=== PATIENT | male | born 2000 | race Caucasian/White ===

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

== ENCOUNTER 2019-06-25 09:12 | Emergency (ER) | payer BC ==
[2019-06-25 09:45] VITALS: BP 107/58; PULSE 70; RESP 17; TEMP 98.7
--- NOTE | 2019-06-25 10:35 | ED ---
URI HPI - General Chief Complaint: Upper Respiratory Infection Stated Complaint: ENT Time Seen by Provider: 06/25/19 10:05 Source: patient Mode of arrival: ambulatory Limitations: no limitations - History of Present Illness Initial Comments: 19-year-old male presenting to the emergency department for evaluation of sore throat x 2 days. Patient states the past 2 days he has had sore throat he states he feels that his tonsils enlarged and there is pain to the anterior neck. Patient states she has reported a fever at home. Patient states he is unsure if there were white spots on his tonsils. Patient denies any difficulty swallowing or breathing. Denies cough. Patient denies headache or neck stiffness. Patient states he has coughed up once some flecks of blood he believes it is coming from his throat. Patient denies shortness of breath, CP. Denies rash or abdominal pain. Remaining ROS (-). Upon arrival patient appears well. Afebrile, no signs of acute distress. - Related Data Previous Rx's Medication Instructions Recorded Amoxicillin 500 mg PO Q12HR 10 Days #20 cap 06/25/19 Dexamethasone [Decadron] 8 mg PO ONCE 1 Days #2 tablet 06/25/19 Allergies Allergy/AdvReac Type Severity Reaction Status Date / Time No Known Allergies Allergy Verified 06/25/19 10:16 Review of Systems ROS Statement: Those systems with pertinent positive or pertinent negative responses have been documented in the HPI. ROS Other: All systems not noted in ROS Statement are negative. Past Medical History Past Medical History: No Reported History History of Any Multi-Drug Resistant Organisms: None Reported Past Surgical History: No Surgical Hx Reported Past Psychological History: Depression Smoking Status: Former smoker Past Alcohol Use History: None Reported Past Drug Use History: Marijuana General Exam - General Exam Comments Initial Comments: General: The patient is awake and alert, in no distress, and does not appear acutely ill. Eye: +3 mm pupils are equal, round and reactive to light, extra-ocular movements are intact. No nystagmus. There is normal conjunctiva bilaterally. No signs of icterus. Ears, nose, mouth and throat: There are moist mucous membranes and no oral lesions. Uvula midline. Tonsillar enlargement or exudates. Oropharynx erythematous. No tripoding drilling or muffled voice. Neck: The neck is supple, there is no tenderness or JVD. No neck stiffness. Cardiovascular: There is a regular rate and rhythm. No murmur, rub or gallop is appreciated. Respiratory: Lungs are clear to auscultation, respirations are non-labored, breath sounds are equal. No wheezes, stridor, rales, or rhonchi. Gastrointestinal: Soft, non-distended, non-tender abdomen without masses or organomegaly noted. There is no rebound or guarding present. Musculoskeletal: Normal ROM, no tenderness. Strength 5/5. Sensation intact. Radial pulses equal bilaterally 2+. Neurological: A&O x 3. CN II-XII intact grossly, There are no obvious motor or sensory deficits. Coordination appears grossly intact. Speech is normal. Skin: Skin is warm and dry and no rashes or lesions are noted. Psychiatric: Cooperative, appropriate mood & affect, normal judgment. Limitations: no limitations Course Vital Signs 06/25/19 09:42 Temperature 98.7 F Pulse Rate 70 Respiratory 17 Rate Blood Pressure 107/58 O2 Sat by Pulse 100 Oximetry Medical Decision Making - Medical Decision Making 19-year-old male presented to the ER for sore throat 2 days. Patient states he has history of fever. Patient has enlarged tonsils with tonsillar exudates. Uvula is midline. No evidence of tripoding drooling, muffled voice. Patient does not appear toxic. Given clinical physical examination findings and history I feel this patient most likely strep pharyngitis. We'll treat with amoxicillin. Patient was also given Decadron for symptom Relief. If patient develops rash he is to return to the ER. She is to follow-up with primary care provider. Patient is agreeable to this care plan discharge. Patient was provided a work note. Disposition Clinical Impression: Pharyngitis Disposition: HOME SELF-CARE Condition: Good Instructions (If sedation given, give patient instructions): Strep Throat (ED) Additional Instructions: Please use medication as discussed. Please follow-up with family doctor in the next 2 days. If you develop a rash please present to the ER, discontinue the antibiotic prescribed. Please return to emergency room if the symptoms increase or worsen or for any other concerns. Prescriptions: Amoxicillin 500 mg PO Q12HR 10 Days #20 cap Dexamethasone [Decadron] 8 mg PO ONCE 1 Days #2 tablet Is patient prescribed a controlled substance at d/c from ED?: No Referrals: None,Stated [Primary Care Provider] - 1-2 days Time of Disposition: 10:33
== END 2019-06-25 11:56 | disposition home or self-care (01) ==
LOC: EC 09:12
DX: J02.9 Acute pharyngitis, unspecified (principal); Z87.891 Personal history of nicotine dependence
CPT/HCPCS: 99282

== ENCOUNTER 2019-08-03 08:27 | Emergency (ER) | payer BC ==
[2019-08-03 08:31] VITALS: BP 132/85; TEMP 98.2
[2019-08-03] MEDS ORDERED: AZITHROMYCIN 250 MG TAB PO STA (08:51)
[2019-08-03] MEDS ORDERED: cefTRIAXone 250 MG VIAL IM STA (08:51)
[2019-08-03] MEDS ORDERED: valACYclovir 500 MG TAB PO STA (08:52)
[2019-08-03] MEDS ORDERED: valACYclovir HCL 1,000 MG TABLET PO STA (08:53)
[2019-08-03 08:54] VITALS: PULSE 77; RESP 19
--- NOTE | 2019-08-03 09:04 | ED ---
General Adult HPI - General Chief complaint: Recheck/Abnormal Lab/Rx Stated complaint: STD check Time Seen by Provider: 08/03/19 08:33 Source: patient, RN notes reviewed Mode of arrival: ambulatory Limitations: no limitations - History of Present Illness Initial comments: 19-year-old male presents emergency Department chief complaint of penile rash, dysuria. Patient states her last couple days. Patient has a history of Chlamydia when he was 15. Patient states it feels similar. He also states he has some painful blisters on his penile shaft. He states never anything like this in the past. He states he is monogamous relationship though he does have unprotected sex. Patient denies any other complaints. - Related Data Home Medications Medication Instructions Recorded Confirmed No Known Home Medications 08/03/19 08/03/19 Allergies Allergy/AdvReac Type Severity Reaction Status Date / Time No Known Allergies Allergy Verified 08/03/19 09:14 Review of Systems ROS Statement: Those systems with pertinent positive or pertinent negative responses have been documented in the HPI. ROS Other: All systems not noted in ROS Statement are negative. Past Medical History Past Medical History: No Reported History History of Any Multi-Drug Resistant Organisms: None Reported Past Surgical History: No Surgical Hx Reported Past Psychological History: Depression Smoking Status: Former smoker Past Alcohol Use History: None Reported Past Drug Use History: Marijuana General Exam Limitations: no limitations General appearance: alert, in no apparent distress Head exam: Present: atraumatic, normocephalic, normal inspection Respiratory exam: Present: normal lung sounds bilaterally. Absent: respiratory distress, wheezes, rales, rhonchi, stridor Cardiovascular Exam: Present: regular rate, normal rhythm, normal heart sounds. Absent: systolic murmur, diastolic murmur, rubs, gallop, clicks GI/Abdominal exam: Present: soft, normal bowel sounds. Absent: distended, tenderness, guarding, rebound, rigid exam: Present: urethral discharge. Absent: normal inspection (Penile shaft vesicles, blistering noted), scrotal swelling Course Vital Signs 08/03/19 08:27 Temperature 98.2 F Pulse Rate 77 Respiratory 19 Rate Blood Pressure 132/85 O2 Sat by Pulse 100 Oximetry Medical Decision Making - Medical Decision Making 19-year-old male presented for penile rash. Patient has evidence of primary herpes outbreak, he does have some penile discharge coronary chlamydia testing was ordered, patient be treated for suspected gonorrhea or chlamydia at this time. Patient also be treated for herpes outbreak. - Lab Data Lab Results 08/03/19 Range/Units 08:56 Urine Color Yellow Urine Appearance Clear (Clear) Urine pH 5.5 (5.0-8.0) Ur Specific [place] 1.018 (1.001-1.035) Urine Protein Negative (Negative) Urine Glucose (UA) Negative (Negative) Urine Ketones Negative (Negative) Urine Blood Trace H (Negative) Urine Nitrite Negative (Negative) Urine Bilirubin Negative (Negative) Urine Urobilinogen <2.0 (<2.0) mg/dL Ur Leukocyte Esterase Negative (Negative) Urine RBC 6 H (0-5) /hpf Urine WBC 1 (0-5) /hpf Ur Squamous Epith Cells <1 (0-4) /hpf Urine Bacteria Rare H (None) /hpf Urine Mucus Rare H (None) /hpf Disposition Clinical Impression: Herpes, Dysuria, Penile discharge, Screening examination for STD (sexually transmitted disease) Disposition: HOME SELF-CARE Condition: Stable Instructions (If sedation given, give patient instructions): Genital Herpes Simplex (ED) Additional Instructions: Please return to the Emergency Department if symptoms worsen or any other concerns. Is patient prescribed a controlled substance at d/c from ED?: No Referrals: None,Stated [Primary Care Provider] - 1-2 days Time of Disposition: 09:04
[2019-08-03 09:29] LABS: Appearance,Urine Clear (Clear); Bacteria,Urine Rare /hpf; Bilirubin,Urine Negative (Negative); Blood,Urine Trace (Negative); Color,Urine Yellow; Glucose,Urine (UA) Negative (Negative); Ketones,Urine Negative (Negative); Leukocyte Esterase,Urine Negative (Negative); Mucus,Urine Rare /hpf; Nitrite,Urine Negative (Negative); PH, Urine 5.5 (5.0-8.0); Protein,Urine Negative (Negative); RBC,Urine 6 /hpf (0-5); Specific Gravity,Urine 1.018 (1.001-1.035); Squamous Epithelial Cell,Urine <1 /hpf (0-4); Urobilinogen,Urine <2.0 mg/dL (<2.0)
[2019-08-04 14:46] LABS: C. trachomatis,PCR Negative (Neg,Equiv); Chlamydia trachomatis Source Urine
[2019-08-04 14:52] LABS: N. gonorrhoeae,PCR Negative (Neg,Equiv); Neisseria Source Urine
== END 2019-08-03 10:16 | disposition home or self-care (01) ==
LOC: EC 08:27
DX: Z11.3 Encounter for screening for infections with a predominantly sexual mode of transmission (principal); A60.01 Herpesviral infection of penis; R30.0 Dysuria; R36.9 Urethral discharge, unspecified; Z87.891 Personal history of nicotine dependence
CPT/HCPCS: 81001; 87491; 87591; 99283; 96372; J0696

== ENCOUNTER 2020-03-10 02:05 | Emergency (ER) | payer OTHER ==
[2020-03-10 05:35] LABS: Basophils % (A) 0 %; Eosinophils % (A) 0 %; HCT 33.7 % (39.0-53.0); Lymphocytes # (A) 1.3 k/uL (1.0-4.8); Lymphocytes % (A) 11 %; MCV 87.6 fL (80.0-100.0); Mean Platelet Volume 7.7; Monocytes # (A) 0.6 k/uL (0-1.0); Monocytes % (A) 5 %; Neutrophils # (A) 9.8 k/uL (1.3-7.7); Neutrophils % (A) 83 %; Platelet Count 197 k/uL (150-450); RBC 3.84 m/uL (4.30-5.90); RDW 13.5 % (11.5-15.5); WBC 11.8 k/uL (4.0-11.0)
[2020-03-10 05:41] LABS: MCH 29.7 pg (25.0-35.0); MCHC 34.1 g/dL (31.0-37.0)
[2020-03-10 05:43] LABS: HGB 11.5 gm/dL (13.0-17.5)
[2020-03-10 05:57] LABS: Appearance,Urine Clear (Clear); Bilirubin,Urine Negative (Negative); Blood,Urine Negative (Negative); Color,Urine Light Yellow; Glucose,Urine (UA) Negative (Negative); Ketones,Urine Negative (Negative); Leukocyte Esterase,Urine Negative (Negative); Nitrite,Urine Negative (Negative); PH, Urine 5.5 (5.0-8.0); Protein,Urine Negative (Negative); RBC,Urine <1 /hpf (0-5); Specific Gravity,Urine 1.009 (1.001-1.035); Urobilinogen,Urine <2.0 mg/dL (<2.0); WBC,Urine <1 /hpf (0-5)
[2020-03-10 06:02] LABS: Amphetamine Screen,Urine Not Detected (NotDetected); Barbiturate Screen,Urine Not Detected (NotDetected); Benzodiazepines Screen,Urine Not Detected (NotDetected); Cocaine Screen,Urine Not Detected (NotDetected); Methadone Screen, Urine Not Detected (NotDetected); Opiate Screen,Urine Not Detected (NotDetected); Oxycodone Screen, Urine Not Detected (NotDetected); Phencyclidine Screen,Urine Not Detected (NotDetected); Tricyclic Antidepressant,Urine Not Detected (NotDetected); Urn Cannabinoid Scrn Detected (NotDetected)
[2020-03-10 06:02] LABS: ALT 25 U/L (4-49); AST 32 U/L (17-59); Acetaminophen <10.0 ug/mL; African American GFR (CKD) >90 (>60 ml/min/1.73 sqM); Albumin 4.8 g/dL (3.5-5.0); Alkaline Phosphatase 60 U/L (38-126); Anion Gap 10 mmol/L; Blood Urea Nitrogen 16 mg/dL (9-20); Calcium 10.1 mg/dL (8.4-10.2); Carbon Dioxide 26 mmol/L (22-30); Chloride 103 mmol/L (98-107); Glucose 106 mg/dL (74-99); Non-African American GFR(CKD) >90 (>60 ml/min/1.73 sqM); Potassium 5.1 mmol/L (3.5-5.1); Salicylate <1.0 mg/dL; Sodium 139 mmol/L (137-145); Total Bilirubin 0.3 mg/dL (0.2-1.3); Total Protein 7.9 g/dL (6.3-8.2); Valproic Acid (Depakene) 16.1 ug/mL
--- NOTE | 2020-03-10 10:34 | ED ---
General Adult HPI - General Chief complaint: Psychiatric Symptoms Stated complaint: Mental Health Time Seen by Provider: 03/10/20 10:27 - Related Data Home Medications Medication Instructions Recorded Confirmed Divalproex ER [Depakote ER] 1,000 mg PO HS 03/10/20 03/10/20 OLANZapine 15 mg PO HS 03/10/20 03/10/20 diphenhydrAMINE [Benadryl] 25 mg PO QID PRN 03/10/20 03/10/20 Allergies Allergy/AdvReac Type Severity Reaction Status Date / Time No Known Allergies Allergy Verified 03/10/20 09:24 Review of Systems ROS Statement: Those systems with pertinent positive or pertinent negative responses have been documented in the HPI. ROS Other: All systems not noted in ROS Statement are negative. Past Medical History Past Medical History: No Reported History History of Any Multi-Drug Resistant Organisms: None Reported Past Surgical History: No Surgical Hx Reported Past Psychological History: Depression Smoking Status: Former smoker Past Alcohol Use History: None Reported Past Drug Use History: Marijuana Medical Decision Making - Medical Decision Making Please see paper documentation, this patient was initially seen on downtime. 19-year-old presenting with acute psychosis, manic. Patient medically cleared by previous physician and was awaiting placement for further psychiatric evaluation and treatment. Patient will be transferred to [place]. - Lab Data Result diagrams: 03/10/20 03:22 03/10/20 03:22 Lab Results 03/10/20 03/10/20 03/10/20 Range/Units 02:47 03:22 03:22 WBC 11.8 H (4.0-11.0) k/uL RBC 3.84 L (4.30-5.90) m/uL Hgb 11.5 L (13.0-17.5) gm/dL Hct 33.7 L (39.0-53.0) % MCV 87.6 (80.0-100.0) fL MCH 29.7 (25.0-35.0) pg MCHC 34.1 (31.0-37.0) g/dL RDW 13.5 (11.5-15.5) % Plt Count 197 (150-450) k/uL Neutrophils % 83 % Lymphocytes % 11 % Monocytes % 5 % Eosinophils % 0 % Basophils % 0 % Neutrophils # 9.8 H (1.3-7.7) k/uL Lymphocytes # 1.3 (1.0-4.8) k/uL Monocytes # 0.6 (0-1.0) k/uL Eosinophils # 0.0 (0-0.7) k/uL Basophils # 0.0 (0-0.2) k/uL Sodium 139 (137-145) mmol/L Potassium 5.1 (3.5-5.1) mmol/L Chloride 103 (98-107) mmol/L Carbon Dioxide 26 (22-30) mmol/L Anion Gap 10 mmol/L BUN 16 (9-20) mg/dL Creatinine 0.79 (0.66-1.25) mg/dL Est GFR (CKD-EPI)AfAm >90 (>60 ml/min/1.73 sqM) Est GFR (CKD-EPI)NonAf >90 (>60 ml/min/1.73 sqM) Glucose 106 H (74-99) mg/dL Calcium 10.1 (8.4-10.2) mg/dL Total Bilirubin 0.3 (0.2-1.3) mg/dL AST 32 (17-59) U/L ALT 25 (4-49) U/L Alkaline Phosphatase 60 (38-126) U/L Total Protein 7.9 (6.3-8.2) g/dL Albumin 4.8 (3.5-5.0) g/dL Urine Color Light Yellow Urine Appearance Clear (Clear) Urine pH 5.5 (5.0-8.0) Ur Specific [place] 1.009 (1.001-1.035) Urine Protein Negative (Negative) Urine Glucose (UA) Negative (Negative) Urine Ketones Negative (Negative) Urine Blood Negative (Negative) Urine Nitrite Negative (Negative) Urine Bilirubin Negative (Negative) Urine Urobilinogen <2.0 (<2.0) mg/dL Ur Leukocyte Esterase Negative (Negative) Urine RBC <1 (0-5) /hpf Urine WBC <1 (0-5) /hpf Salicylates <1.0 mg/dL Urine Opiates Screen Not Detected (NotDetected) Ur Oxycodone Screen Not Detected (NotDetected) Urine Methadone Screen Not Detected (NotDetected) Ur Propoxyphene Screen Not Detected (NotDetected) Acetaminophen <10.0 ug/mL Ur Barbiturates Screen Not Detected (NotDetected) Valproic Acid 16.1 ug/mL U Tricyclic Antidepress Not Detected (NotDetected) Ur Phencyclidine Scrn Not Detected (NotDetected) Ur Amphetamines Screen Not Detected (NotDetected) U Methamphetamines Scrn Not Detected (NotDetected) U Benzodiazepines Scrn Not Detected (NotDetected) Urine Cocaine Screen Not Detected (NotDetected) U Marijuana (THC) Screen Detected H (NotDetected) Disposition Clinical Impression: Acute psychosis Disposition: OTHER INSTITUTION NOT DEFINED Condition: Stable Is patient prescribed a controlled substance at d/c from ED?: No Referrals: None,Stated [Primary Care Provider] - 1-2 days Time of Disposition: 10:33 - Out of Hospital Transfer - Req. Specs Out of Hospital Transfer - Requested Specifics: Psychiatric Non-ICU ([place])
== END 2020-03-10 12:01 | disposition other institution (70) ==
LOC: EC 02:05
DX: F23 Brief psychotic disorder (principal); F32.9 Major depressive disorder, single episode, unspecified; Z87.891 Personal history of nicotine dependence; Z79.899 Other long term (current) drug therapy
CPT/HCPCS: 99285; 36415; 80164; 80053; 85025; 81003; 80306; 83520; G0480; 80329

== ENCOUNTER 2021-05-03 15:19 | Emergency (ER) | payer OTHER ==
--- NOTE | 2021-05-03 16:29 | ED ---
General Adult HPI - General Chief complaint: Abdominal Pain Stated complaint: Hernia Source: patient Mode of arrival: ambulatory Limitations: no limitations - History of Present Illness Initial comments: 21-year-old male alert and oriented 4 presents to the emergency room with exposure to chlamydia. He is states he has no discharge at this time no abdominal pain. He stated in triage that he had possible hernia but he denies, states he just did not want to stay out loud when he was here for. Patient states that his girlfriend asked him saying she was positive for Chlamydia and that he needed to be treated. - Related Data Home Medications Medication Instructions Recorded Confirmed Divalproex ER [Depakote ER] 1,000 mg PO HS 03/10/20 03/10/20 OLANZapine 15 mg PO HS 03/10/20 03/10/20 diphenhydrAMINE [Benadryl] 25 mg PO QID PRN 03/10/20 03/10/20 Allergies Allergy/AdvReac Type Severity Reaction Status Date / Time No Known Allergies Allergy Verified 05/03/21 16:06 Review of Systems ROS Statement: Those systems with pertinent positive or pertinent negative responses have been documented in the HPI. ROS Other: All systems not noted in ROS Statement are negative. Past Medical History Past Medical History: No Reported History History of Any Multi-Drug Resistant Organisms: None Reported Past Surgical History: No Surgical Hx Reported Past Psychological History: Depression Smoking Status: Current some day smoker Past Alcohol Use History: Occasional Past Drug Use History: Marijuana General Exam Limitations: no limitations General appearance: alert, in no apparent distress Head exam: Present: atraumatic, normocephalic, normal inspection Eye exam: Present: normal appearance, PERRL, EOMI. Absent: scleral icterus, conjunctival injection, periorbital swelling ENT exam: Present: normal exam, normal oropharynx, mucous membranes moist Neck exam: Present: normal inspection, full ROM. Absent: tenderness, meningismus, lymphadenopathy, thyromegaly Respiratory exam: Present: normal lung sounds bilaterally. Absent: respiratory distress, wheezes, rales, rhonchi, stridor Cardiovascular Exam: Present: regular rate, normal rhythm, normal heart sounds. Absent: systolic murmur, diastolic murmur, rubs, gallop, clicks GI/Abdominal exam: Present: soft, normal bowel sounds. Absent: distended, tenderness, guarding, rebound, rigid Extremities exam: Present: normal inspection, full ROM, normal capillary refill. Absent: tenderness, pedal edema, joint swelling, calf tenderness Back exam: Present: normal inspection, full ROM. Absent: tenderness, CVA tenderness (R), CVA tenderness (L), muscle spasm, paraspinal tenderness, vertebral tenderness Neurological exam: Present: alert, oriented X3, CN II-XII intact Psychiatric exam: Present: normal affect, normal mood Skin exam: Present: warm, dry, intact, normal color. Absent: rash, cyanosis, diaphoretic, erythema, petechiae, pallor, mottled Course Vital Signs 05/03/21 16:06 Temperature 98.3 F Pulse Rate 82 Respiratory 20 Rate Blood Pressure 100/61 O2 Sat by Pulse 98 Oximetry Medical Decision Making - Medical Decision Making The patient states that he is here for treatment for an exposure to chlamydia from a sexual partner. He denies any penile discharge or testicular pain. No burning with urination. UA was sent for cultures. He was treated with Rocephin and Zithromax. Patient was directed to abstain from sex for 2 weeks and to wear condoms to prevent infection. Patient stated his initial complaint of hernia was only because he did not want to tell the triage nurse what his real complaint was. He denies any abdominal pain or hernia complaints. He still discussed with Dr. Todd Disposition Clinical Impression: Sexually transmitted disease (STD) Disposition: HOME SELF-CARE Condition: Good Additional Instructions: Wear condoms and practice safe sex. No sexual intercourse for 2 weeks. Have all your partners treated. Is patient prescribed a controlled substance at d/c from ED?: No Referrals: None,Stated [Primary Care Provider] - 1-2 days Time of Disposition: 16:38
[2021-05-03] MEDS ORDERED: AZITHROMYCIN 250 MG TAB PO STA (16:31)
[2021-05-03] MEDS ORDERED: cefTRIAXone 250 MG VIAL IM STA (16:31)
[2021-05-03 17:20] VITALS: BP 122/70; PULSE 69; RESP 16; TEMP 97.3
== END 2021-05-03 17:20 | disposition home or self-care (01) ==
LOC: EC 15:19
DX: A56.8 Sexually transmitted chlamydial infection of other sites (principal); F32.9 Major depressive disorder, single episode, unspecified; F17.200 Nicotine dependence, unspecified, uncomplicated; F12.90 Cannabis use, unspecified, uncomplicated
CPT/HCPCS: 96372; 99283